=== PATIENT | female | born 1960 | race Caucasian/White ===

== ENCOUNTER 2023-05-11 01:10 | Inpatient (IN) | payer OTHER, MEDICARE | END 2023-05-14 14:15 | disposition home or self-care (01) | DRG 481 | LOC: ED 01:10 → MS 02:19 | PROVIDERS: ADMIT Specialist | PROC: 0QS604Z Reposition Right Upper Femur with Internal Fixation Device, Open Approach (ICD-10-PCS; principal; 2023-05-11) | DX: S72.141A Displaced intertrochanteric fracture of right femur, initial encounter for closed fracture (principal); D62 Acute posthemorrhagic anemia; N39.0 Urinary tract infection, site not specified; I95.81 Postprocedural hypotension; M32.9 Systemic lupus erythematosus, unspecified; I10 Essential (primary) hypertension; G40.909 Epilepsy, unspecified, not intractable, without status epilepticus; W01.0XXA Fall on same level from slipping, tripping and stumbling without subsequent striking against object, initial encounter; Z79.52 Long term (current) use of systemic steroids; Z88.2 Allergy status to sulfonamides ==